=== PATIENT | female | born 1980 | race Caucasian/White ===

== ENCOUNTER 2016-07-17 19:40 | Inpatient (IN) | payer OTHER ==
--- NOTE | ~2016-07-17 | CT24 ---
[facility] A Service of [facility] RADIOLOGY TEXT RESULTS PATIENT: BAKARI NICOLE LOCATION: [place] [address] : [birth year] UNIT #: [id number] AGE: [address]: Winter Williamson MD SEX: F ORDER DR: [id number] [facility] [address] [facility]. [place], [place] [address] [id number] I MR#: [id number] Acc #: [id number] NAME: BAKARI NICOLE : 1980 SEX: F STUDY DATE/TIME: 07/17/2016 18:46 UNIT: [facility] ROOM: [facility] STUDY DESCRIPTION: CT Angio Neck Stroke Attending Physician: Winter Williamson M.D. Ordering Physician: Dany Avila M.D. Primary Care Physician: Debra Dash M.D. MEDICAL IMAGING REPORT This report is preliminary unless electronic signature is present EXAM CT angiogram of the neck HISTORY FINDINGS Please see CT angiogram of the head for results. Dictated by... Kelby Eaton M.D. THIS IS AN ELECTRONICALLY VERIFIED REPORT Kelby Eaton M.D. at 07/18/2016 4:44 PM Hanh TD: 07/18/2016 08:29 JOB #: [id number] MEDICAL IMAGING REPORT Page 1 of 1 COPY
--- NOTE | ~2016-07-17 | CT71 ---
[facility] A Service of [facility] RADIOLOGY TEXT RESULTS PATIENT: BAKARI NICOLE LOCATION: [address] : [birth year] UNIT #: [id number] AGE: [address]: Winter Williamson MD SEX: F ORDER DR: [id number] [facility] [address] [facility]. [place], [place] [address] [id number] I MR#: [id number] Acc #: [id number] NAME: BAKARI NICOLE. : 1980 SEX: F STUDY DATE/TIME: 07/18/2016 21:54 UNIT: [facility] ROOM: [facility] STUDY DESCRIPTION: CT Head Wo Contrast Attending Physician: Winter Williamson M.D. Ordering Physician: Denita Asif M.D. Primary Care Physician: Debra Dash M.D. MEDICAL IMAGING REPORT This report is preliminary unless electronic signature is present EXAM Head CT without. HISTORY CVA, dizziness, falls, double vision, slurred speech, unsteady gait, weakness, post-tPA 07/17/2016. Stroke follow-up. COMMENT Routine noncontrast head CT is reviewed. COMPARISON The comparison is from 07/17/2016. TECHNIQUE NOTE: This CT exam was performed with one or more of the following radiation dose reduction techniques: automatic exposure control, adjustment of mA and/or kV according to patient size, and iterative reconstruction. FINDINGS No displaced calvarial fracture. The mastoid air cells are clear. The visualized paranasal sinuses are clear. There is no evidence for acute intracranial hemorrhage or extraaxial fluid collection. The floor images are limited by artifact. The ventricles are normal in size and configuration. Gregory-white junction is well maintained, allowing for the artifact. There is no intracranial mass effect. IMPRESSION 1. Allowing for artifact on the lower images, no acute intracranial abnormality is suspected. Specifically, no acute intracranial hemorrhage is appreciated. [facility] A Service [facility] RADIOLOGY TEXT RESULTS PATIENT: BAKARI NICOLE LOCATION: [facility] : [birth year] UNIT #: [id number] AGE: [address]: Winter Williamson MD SEX: F ORDER DR: Dictated by... Amy Thomas M.D. THIS IS AN ELECTRONICALLY VERIFIED REPORT Amy Thomas M.D. at 07/19/2016 10:22 AM ESTELLE/jennifer TD: 07/18/2016 23:31 JOB #: [id number] MEDICAL IMAGING REPORT Page 1 of 1 COPY
--- NOTE | ~2016-07-17 | CO ---
Unit #: [id number] #: [id number] Patient: BAKARI HUNTER [id number] [place] [id number] [facility]. [place], [place] [address] [id number] I MR#: [id number] NAME: BAKARI HUNTER ROOM: [facility] Age: 36 Sex: F Admission Date: 07/17/2016 : 1980 Attending Physician: Winter Williamson M.D. Primary Care Physician: Debra Dash M.D. Consultation Date: 07/18/2016 CONSULTATION REPORT REASON FOR CONSULTATION Opiate withdrawal, anxiety, agitation. HISTORY OF PRESENT ILLNESS Ms. Bakari Hunter is a 36-year-old female seen in room 7, CCU2 at [facility] on 07/18/16. The patient reported having withdrawal symptom, use of opiate, meth recently. The patient was admitted on 07/17/16, possible stroke, Dilantin toxicity. The patient has a history of hypertension, seizure, previous [place]. The patient reported history of IV drug abuse, currently reporting having symptoms such as hot and cold sweats, severe anxiety, trouble sleeping, agitation, restlessness of her legs. The patient currently denied any suicidal or homicidal ideation. The patient denied any psychotic symptoms. The patient's urine drug screen was positive for marijuana and opiate. PAST PSYCHIATRIC HISTORY History of substance abuse. No history of any depression, suicide attempt or any inpatient or outpatient treatment. MEDICAL HISTORY History of seizure, eclampsia, myocardial infarction, bilateral tubal ligation, left hand surgery, essential hypertension. FAMILY HISTORY AND SOCIAL HISTORY The patient has a good support system but no history of abuse. History of substance abuse as mentioned above. ALLERGIES No known drug allergy. MEDICATION 1. Lisinopril. 2. Dilantin. 3. Started on methadone 10 mg q.8 hours p.r.n. REVIEW OF SYSTEMS A complete review of systems is unremarkable for as mentioned above. MENTAL STATUS EXAMINATION GENERAL APPEARANCE: Patient dressed casually in hospital attire, lying comfortably, seems somewhat anxious, nervous. VITAL SIGNS: 98.4, 72, 18, 126/88, oxygen saturation 99%. ATTENTION SPAN AND CONCENTRATION: Fair. SPEECH: Rapid. Unit #: [id number] #: [id number] Patient: BAKARI HUNTER ORIENTATION: Time, place and person. MOOD AND AFFECT: Labile. THOUGHT PROCESS: Circumstantial. THOUGHT CONTENT: The patient denied any thoughts of harming self or others. The patient denied any psychotic symptoms. RECENT AND REMOTE MEMORY: Fair. LANGUAGE: Intact. FUND OF KNOWLEDGE: Fair. INSIGHT AND JUDGMENT: Fair to slightly impaired. DIAGNOSES 1. Opiate use disorder, severe, F11.20. 2. Cannabis use, moderate, F12.20. 3. Mood disorder, NOS, F32.9. 4. Anxiety disorder, NOS, F40.01. SECONDARY DIAGNOSIS Deferred. MEDICAL DIAGNOSIS Please refer to H and P. STRESSORS Psychosocial stressors. ASSESSMENT/PLAN 1. Supportive psychotherapy and psychoeducation provided to patient. 2. Educated about benefits and side effects of medication and course and prognosis of illness. 3. I advised patient to continue with the current treatment. I advised Desyrel 100 mg at bedtime for sleep, Requip 1 mg twice daily, Vistaril 50 mg mg three times a day and Neurontin 300 mg q.8 hourly for withdrawal symptoms. The patient was given one dose of Neurontin 600 mg and Requip 1 mg as a now dose. We will continue to follow. If needed, consider further adjustment of medication. Please feel free to call if any questions, telephone number [phone]. Dictated by... Damian Rahman M.D. LILLY/bd TD: 07/19/2016 08:39 JOB #: [id number] CONSULTATION REPORT Page 1 of 1 X Damian Rahman MD X CONSULTATION REPORT
--- NOTE | ~2016-07-17 | MR18 ---
[facility] A Service of [facility] & [facility] RADIOLOGY TEXT RESULTS PATIENT: BAKARI NICOLE LOCATION: [address] : [birth year] UNIT #: [id number] AGE: [address]: Winter Williamson MD SEX: F ORDER DR: [id number] [facility] [address] [facility]. [place], [place] [address] [id number] I MR#: [id number] Acc #: [id number] NAME: BAKARI NICOLE. : 1980 SEX: F STUDY DATE/TIME: 07/18/2016 10:12 UNIT: [facility] ROOM: [facility] STUDY DESCRIPTION: MR Brain Wo Contrast Attending Physician: Winter Williamson M.D. Ordering Physician: Denita Asif M.D. Primary Care Physician: Debra Dash M.D. MRI CENTER REPORT This report is preliminary unless electronic signature is present. EXAM Unenhanced brain MRI, 07/18/2016. PROCEDURE Routine unenhanced brain MRI. COMPARISON Head CT, 07/17/2016. HISTORY Transient episode of leg numbness and double vision for 2 hours on 07/17/2016 with a 4-day history of headache and recent heroin use. FINDINGS There is no restricted diffusion. The brain is structurally normal, and brain parenchymal signal is normal. There is no hemorrhage or mass or hydrocephalus or extraaxial fluid collection. Normal flow voids are seen in the cerebral vessels and the extracranial soft tissues are normal. Bone marrow signal is normal. IMPRESSION Normal brain MRI without contrast. Dictated by... David Alex M.D. THIS IS AN ELECTRONICALLY VERIFIED REPORT David Alxe M.D. at 07/19/2016 3:53 PM CHRISTOS/jessy [facility] A Service of [facility] & [facility] RADIOLOGY TEXT RESULTS PATIENT: BAKARI NICOLE LOCATION: [address] : [birth year] UNIT #: [id number] AGE: [address]: Winter Williamson MD SEX: F ORDER DR: TD: 07/18/2016 12:03 JOB #: [id number] MRI CENTER REPORT Page 1 of 1 COPY
--- NOTE | ~2016-07-17 | EKG ---
PATIENT: BAKARI NICOLE UNIT #: [id number] Ventricular Rate: 66 BPM Atrial Rate: 66 BPM P-R Interval: 152 ms QRS Duration: 84 ms Q-T Interval: 424 ms QTC Calculation(Bezet): 444 ms P [place]: 50 degrees Calculated R [place]: 66 degrees Calculated T [place]: 74 degrees Diagnosis Line: Normal sinus rhythm Diagnosis Line: Low voltage QRS Diagnosis Line: Borderline ECG Diagnosis Line: When compared with ECG of 17-JUL-2016 19:07, Diagnosis Line: No significant change was found Diagnosis Line: Confirmed by ALEXIA HERNANDEZ MD ([id number]) on 07/18/2016 Diagnosis Line: 10:47:30 PM INTERPRETING MD: MARY LERNER
--- NOTE | ~2016-07-17 | EKG ---
PATIENT: BAKARI NICOLE UNIT #: [id number] Ventricular Rate: 78 BPM Atrial Rate: 78 BPM P-R Interval: 148 ms QRS Duration: 86 ms Q-T Interval: 390 ms QTC Calculation(Bezet): 444 ms P Christopher: 50 degrees Calculated R Christopher: 74 degrees Calculated T Christopher: 71 degrees Diagnosis Line: Normal sinus rhythm Diagnosis Line: Normal ECG Diagnosis Line: When compared with ECG of 26-OCT-2013 18:50, Diagnosis Line: No significant change was found Diagnosis Line: Confirmed by HARMAN FOWLER MD ([id number]) on Diagnosis Line: 07/17/2016 10:32:41 PM INTERPRETING : STACY
--- NOTE | ~2016-07-17 | CT72 ---
[facility] A Service of [facility] RADIOLOGY TEXT RESULTS PATIENT: BAKARI NICOLE LOCATION: [facility] : [birth year] UNIT #: [id number] AGE: [address]: Winter Williamson MD SEX: F ORDER DR: [id number] [facility] [address] [facility]. [place], [place] [address] [id number] I MR#: [id number] Acc #: [id number] NAME: BAKARI NICOLE : 1980 SEX: F STUDY DATE/TIME: 07/17/2016 18:39 UNIT: [facility] ROOM: [id number] STUDY DESCRIPTION: CT Head Wo Contrast Stroke Attending Physician: Holly Farmer M.D. Ordering Physician: Dany Avila M.D. Primary Care Physician: Debra Dash M.D. MEDICAL IMAGING REPORT This report is preliminary unless electronic signature is present EXAM CT brain without contrast HISTORY Leg numbness for 2 hours, double vision. Heroin use. TECHNIQUE Axial noncontrast images were obtained from the skull base to the vertex. This CT exam was performed with one or more of the following radiation dose reduction techniques: automatic exposure control, adjustment of mA and/or kV according to patient size, and iterative reconstruction. FINDINGS Ventricular size and configuration are normal. There is no evidence of acute infarct or hemorrhage. There are no extraaxial fluid collections. No mass lesion or mass effect is seen. There are no skull fractures. IMPRESSION Normal noncontrast head CT. Dictated by... Magdy Valderrama M.D. THIS IS AN ELECTRONICALLY VERIFIED REPORT Magdy Valderrama M.D. at 07/18/2016 9:09 PM OMI/baljeet TD: 07/17/2016 22:35 JOB #: [id number] [facility] A Service [facility] RADIOLOGY TEXT RESULTS PATIENT: BAKARI NICOLE LOCATION: [facility] : [birth year] UNIT #: [id number] AGE: [address]: Winter Williamson MD SEX: F ORDER DR: MEDICAL IMAGING REPORT Page 1 of 1 COPY
--- NOTE | ~2016-07-17 | CT18 ---
[facility] A Service of [facility] & [facility] RADIOLOGY TEXT RESULTS PATIENT: BAKARI NICOLE LOCATION: [place] [address] : [birth year] UNIT #: [id number] AGE: [address]: Winter Williamson MD SEX: F ORDER DR: [id number] [facility] [address] [place], [place] [address] [id number] I MR#: [id number] Acc #: [id number] NAME: BAKARI NICOLE. : 1980 SEX: F STUDY DATE/TIME: 07/17/2016 18:46 UNIT: [facility] ROOM: [facility] STUDY DESCRIPTION: CT Angio Head Stroke Attending Physician: Winter Williamson M.D. Ordering Physician: Dany Avila M.D. Primary Care Physician: Debra Dash M.D. MEDICAL IMAGING REPORT This report is preliminary unless electronic signature is present EXAM CT scan of the head and neck with contrast with carotid CT angiography HISTORY Heroine use 3 days ago. Diplopia and leg numbness for the past 2 hours. TECHNIQUE Axial imaging was obtained from the mid mediastinum to the top of the head with contrast. 100 mL of Isovue was used. CT angiography was performed with thick sliding MIPs, curved planar reformats and 3-D volumetric imaging with surface shaded and volume shaded display. This CT exam was performed with one or more of the following radiation dose reduction techniques: automatic exposure control, adjustment of mA and/or kV according to patient size, and iterative reconstruction. FINDINGS Extravascular structures are unremarkable. The CT angiographic study is normal. There is no evidence of dissection, occlusive disease or atherosclerotic change. In the intracranial circulation there is no evidence of distal embolization. No evidence of aneurysm or vascular malformation. The vertebral arteries are codominant. There is origin of the left posterior cerebral artery as a normal variant. IMPRESSION Normal. Dictated by... Kelby Eaton M.D. THIS IS AN ELECTRONICALLY VERIFIED REPORT Kelby Eaton M.D. at 07/18/2016 4:44 PM [facility]S. [facility] A Service of [facility] & [facility] RADIOLOGY TEXT RESULTS PATIENT: BAKARI NICOLE LOCATION: [address] : [birth year] UNIT #: [id number] AGE: [address]: Winter Williamson MD SEX: F ORDER DR: Hanh TD: 07/18/2016 08:33 JOB #: [id number] MEDICAL IMAGING REPORT Page 1 of 1 COPY
--- NOTE | ~2016-07-17 | DS ---
Unit #: [id number] #: [id number] Patient: BAKARI NICOLE [id number] [address] [place], [place] [address] [id number] I MR#: [id number] NAME: BAKARI NICOLE. ROOM: [facility] Age: 36 Sex: F Admission Date: 07/17/2016 : 1980 Discharge Date: 07/19/2016 Attending Physician: Winter Williamson M.D. Primary Care Physician: Debra Dash M.D. DISCHARGE SUMMARY REASON FOR ADMISSION CVA. HISTORY OF PRESENT ILLNESS/HOSPITAL COURSE Patient is a very pleasant 36-year-old female with hypertension, prior seizure disorder, previous myocardial infarction secondary to eclampsia while . Was admitted secondary to possible CVA. Please see H and P for complete details. Through ER course the patient received TPA. Patient was kept in the ICU for 24 hours. She had no acute neurological events. MRI brain without contrast was performed, which did not show any acute process. Consultation was placed to neurology service. Patient underwent stroke protocol, including CT angiogram head and neck, as well as CT head without contrast. Patient also underwent ALANA, which did not show any acute clot and/or vegetation. Patient does have a longstanding history of IV drug abuse. At this point in time the patient has all neurological deficits now resolved, has been cleared by PT/OT. Consultation was placed to Dr. Rahman of psychiatry service who recommended trazodone, Neurontin, Requip, as well as Vistaril, at time of discharge to help patient with IV drug abuse and trying to discontinue. It has been reinforced with patient on numerous occasions that she does need to quit IV drugs, as her overall long-term prognosis would be very poor. She expressed understanding and agreement. FINAL DISCHARGE DIAGNOSES 1. Cerebrovascular accident status post tissue plasminogen activator with resolution of symptoms. 2. Right hemispheric/posterior circulation cerebrovascular accident. 3. Status post mechanical fall at home. 4. Seizure disorder, on Dilantin. 5. Hypertension. 6. Prior history of myocardial infarction. 7. Tobacco abuse. 8. Positive intravenous drug abuse. 9. Generalized anxiety. 10. Hypertension. Unit #: [id number] #: [id number] Patient: BAKARI NICOLE FINAL DISCHARGE MEDICATIONS 1. Neurontin 300 mg p.o. q.8. 2. Trazodone 100 mg p.o. q.h.s. 3. Requip 1 mg p.o. b.i.d. 4. Vistaril 50 mg p.o. q.8 p.r.n. 5. Lipitor 40 mg p.o. q.h.s. 6. Dilantin 300 mg p.o. daily. 7. Lisinopril 10 mg p.o. daily. 8. Aspirin 81 mg p.o. daily. DISCHARGE CONDITION Stable. DISCHARGE DISPOSITION Home. FOLLOWUP 1. Follow up PCP 7 to 10 days[address] 2[address] Follow up Dr. Oliva 2 to 3 weeks. Dictated by... Pedrito Echavarria/evie TD: 07/20/2016 08:27 JOB #: [id number] DISCHARGE SUMMARY Page 1 of 1 X Winter Williamson MD X DISCHARGE SUMMARY
--- NOTE | ~2016-07-17 | HP ---
Unit #: [id number] #: [id number] Patient: BAKARI NICOLE [id number] [address] [place], [place] [address] [id number] I MR#: [id number] NAME: BAKARI NICOLE. ROOM: 97689 Age: 36 Sex: F Admission Date: 07/17/2016 : 1980 Attending Physician: Holly Farmer M.D. Primary Care Physician: Debra Dash M.D. HISTORY AND PHYSICAL REVISED REPORT CHIEF COMPLAINT Possible stroke, Dilantin toxicity. HISTORY OF PRESENT ILLNESS This 36-year-old female with hypertension, seizures, previous DE due to eclampsia while , is admitted for possible CVA. The patient states that she was well until just before coming into the ER when she developed diplopia, staggered gait, unable to walk, and apparently left arm weakness. She presented to this emergency department at 5:52 was seen immediately by the ER physician. Head CT is negative. CTA of the head and neck show that the posterior communicating artery is not well seen but no cutoff or aneurysm. The case was discussed with Dr. Yefri martínez saw the patient via robot. The patient then received IV tPA and she currently is improved. She still has some mild left-sided weakness with a left pronator drift. Her speech has improved. She had a posterior headache for the past several days. Labs performed show that she is Dilantin toxic as well. She denies similar symptoms in the past, and states except for her posterior headache over the past four days, she has been feeling well until tonight. PAST MEDICAL HISTORY 1. Essential hypertension. 2. Generalized seizures. 3. Eclampsia and myocardial infarction during . 4. Bilateral breast augmentation. 5. BTL. 6. Left hand surgery. ALLERGIES No known drug allergies. HOME MEDICATIONS 1. Lisinopril. 2. Dilantin. Doses are unknown. SOCIAL HISTORY The patient lives alone. She smokes 1-1/2 packs per day of tobacco. Does not drink alcohol. Urine toxicology screen is positive as will be dictated below. Unit #: [id number] #: [id number] Patient: BAKARI NICOLE FAMILY HISTORY CAD, CVA. REVIEW OF SYSTEMS Notable for diplopia, weakness, staggering, fall, DE, hypertension, seizures, above-mentioned surgeries. All other systems were reviewed and are negative. PHYSICAL EXAMINATION VITAL SIGNS: Temperature 99, pulse 115, respirations 16, blood pressure 133/91, O2 saturation 99% on room air. GENERAL: 36-year-old female currently in no acute distress. HEENT: Eyes PERRLA. Mild horizontal nystagmus noted. Pharynx has broken on of her top teeth but no excessive bleeding. Palate elevates midline. NECK: Supple without adenopathy or thyromegaly or carotid bruits. CHEST: Clear. HEART: Normal S1, S2 without S3, S4 or murmur. ABDOMEN: Bowel sounds are present. No hepatosplenomegaly, tenderness or masses. EXTREMITIES: Without edema. Pedal pulses are present. NEUROLOGIC: Awake, alert, oriented except that she thinks it is 2016. Cranial nerves demonstrate mild horizontal nystagmus bilaterally. She has decreased peripheral vision on the left. Maybe a tiny left lower facial droop. Positive left pronator drift. She has weakness in the left leg as compared to the right. Heel to leal is a little off on the left and slight past pointing on the left. DIAGNOSTIC STUDIES LABORATORY: Hematocrit 37, normal white count, platelet count and coags. SMA-12 potassium 3.4, albumin 3.4. Dilantin level is 28.3. Urine toxicology screen positive for opiates and THC. Urinalysis 2+ leukocyte esterase wit 2-5 rbc's and 10-25 wbc's, 3+ bacteria but many squamous cells seen. IMAGING: Head CT no acute disease. CTA of the head and neck. The posterior communicating artery not well seen but otherwise normal. CARDIOVASCULAR: EKG normal sinus rhythm, rate 78, normal appearing. ASSESSMENT 1. Possible right hemispheric or posterior circulation cerebrovascular accident. Patient is Dilantin toxic but seems to lateralize more toward the left. 2. Seizure disorder on Dilantin with Dilantin toxicity. 3. Essential hypertension. 4. History of myocardial infarction in her 20s while due to eclampsia. 5. Tobacco abuse. 6. Positive opiates and THC on urine drug screen. 7. Possible urinary tract infection versus contamination. PLAN 1. Post TPA orders have been signed by Neurology. 2. SCDs for DVT prophylaxis. 3. NicoDerm patch. Unit #: [id number] #: [id number] Patient: BAKARI NICOLE 4. Recheck Dilantin level in the morning and hold until the level decreases. 5. Verify home medicines. 6. MRI, ALANA and head CT per Neurology. 7. Check lipid profile. 8. Antibiotics pending urine cultures. Critical care time spent evaluating this patient was 40 minutes. ADDENDUM The patient is demanding to smoke one cigarette before going to the ICU or she will leave AMA. She became quite agitated in the ER. I discussed the risks with the patient about going outside and smoking that she could . However, she is refusing to stay saying that she wants to leave AMA otherwise. She is alert and oriented x3 and therefore cannot be placed on a hold. I also discussed the case with Dr. Asif. I believe that the risks of the patient going outside in a gurney with a monitor to smoke once outweighs the risk of leaving AMA and possibly falling. Dictated by Pedrito Castellon/surekha TD: 07/17/2016 22:22 JOB #: [id number] HISTORY AND PHYSICAL Page 1 of 1 X Holly Farmer MD HISTORY AND PHYSICAL
--- NOTE | ~2016-07-17 | CO ---
Unit #: [id number] #: [id number] Patient: BAKARI NICOLE [id number] [facility] [address]. [place], [place] [address] [id number] MR#: [id number] NAME: BAKARI NICOLE. ROOM: [facility] Age: 36 Sex: F Admission Date: 07/17/2016 : 1980 Attending Physician: Winter Williamson M.D. Primary Care Physician: Debra Dash M.D. Consultation Date: 07/18/2016 CONSULTATION REPORT REFERRING PHYSICIANS 1. Dr. Holly Farmer. 2. Dr. Dany Avila, ER physician. PATIENT IDENTIFICATION This is a 36-year-old right-handed white female who was evaluated in ICU 7 at [facility]. She was also seen via [employer] as acute code stroke. PROBLEM LIST 1. Prior history of seizures. 2. Possible eclampsia. 3. History of myocardial infarction during . 4. Bilateral tubal ligation. 5. Left hand surgery. 6. Essential hypertension. 7. It looks like she has polysubstance abuse. She acknowledged IV drugs. 8. Possible withdrawal. 9. Dilantin toxicity. HISTORY OF PRESENT ILLNESS This is a 36-year-old female who actually presented yesterday and this was an abrupt onset, about an hour before she presented with ataxia and left-sided weakness and dysarthria. She was immediately seen by the ER physician and I got involved. I got on the robot and saw the patient. The patient had focal neurologic deficit which was dysarthria, left-sided weakness, and left-sided ataxia. Her risk factors were evaluated and there were no acute risk factors, so it was decided to go for TPA and I explained it to the patient. CTA was done which was unremarkable. CT was unremarkable, so after reviewing of the (1) criteria by myself and the ER physician, she was given TPA and she was admitted for post TPA orders and workup. The patient did have some improvement but the biggest concern has been that since last night, three times she has threatened to leave AMA. First, she wanted to smoke and then she wanted help with withdrawal and also she wanted some sleep aide. This is after she got methadone to help her with pain and relaxation. She has been getting medication for nausea. This morning, she again wanted to leave. I requested her and I really appreciate Dr. Farmer talking to her and making it comfortable for her so she does not leave. Unit #: [id number] #: [id number] Patient: BAKARI NICOLE She did acknowledge use of IV heroin two days earlier. Her history is very sketchy but very worrisome. Apparently, she had a [place] at 22 and the cause is not really identified. There is question about eclampsia. She has seizures and so far I do not know who is seeing her. After all this, it does not look like she is on aspirin and I am not sure if she is compliant but her Dilantin level is 28.3 and she takes Dilantin 300 mg at bedtime. Her alcohol level was not checked. Her CBC was unremarkable. Urine drug screen was positive for marijuana and opiates and she said that she had not used opiates for 48 hours. This morning when I see her, she is much better. She is more awake and alert, very minimal left-sided weakness but dysarthria and left facial weakness and ataxia has improved significantly. She is going for MRI. I have a very, very detailed discussion with the patient regarding diagnosis of stroke in acute situations and how we use NIH stroke scale and also the stroke protocol in acute situations and why TPA was given and what are the precautions and issues with it. It may have helped her a lot but there may be some residual, but the biggest risk is in the first 24 hours to make sure there is no hemorrhage and that is why she needs to be closely monitored. It does not look like this was a seizure. She has generalized seizures. She has been here once before for perianal abscess but never been cardiac or otherwise worked up. When I asked her who her deputy insurance commissioner is, she says I do not have one. She goes to the primary care physician and unfortunately we do not have any records. Her primary care physician is Debra Dash M.D. No falls. No other injuries. As I mentioned before, she was given TPA as per protocol and she did not have any cutoff to go for any intervention. Post TPA protocol is in place. PAST MEDICAL HISTORY As discussed above. PAST SURGICAL HISTORY As discussed above. She also had left hand surgery and bilateral breast augmentation. ALLERGIES None. HOME MEDICATIONS 1. Lisinopril. 2. Dilantin, she says 300 mg. SOCIAL HISTORY Apparently, the patient is single and lives alone. She told me she has children. She smokes about one and a half pack per day. She denies drinking. She did acknowledge use of IV heroin. Urine drug screen is positive for opiates and THC. FAMILY HISTORY Several people in the family have stroke and young coronary artery disease. Her aunt had bypass at 31. REVIEW OF SYSTEMS Mostly as discussed in history of present illness. Unit #: [id number] #: [id number] Patient: BAKARI NICOLE CONSTITUTIONAL: She denies any weight issues, fever, chills, rigors, sweats. HEENT: No headaches. No double vision, earache, runny nose, sore throat. CARDIOVASCULAR: No chest pain, clubbing, cyanosis, orthopnea, or palpitations. PULMONARY: No shortness of air, cough, or expectoration. GASTROINTESTINAL: No nausea, vomiting, diarrhea, or constipation. GENITOURINARY: No genitourinary symptoms. EXTREMITIES: Left-sided ataxia. BACK: No back problem. PSYCHIATRIC: Polysubstance abuse. NEUROLOGIC: History of seizure. HEMATOLOGIC/DERMATOLOGIC/ENDOCRINE: No other hematologic, dermatologic, or endocrine problem known to me. ORAL: She does have very poor oral teeth health and some caries, and she says she fell and hit her right frontal tooth. PHYSICAL EXAMINATION VITAL SIGNS: Temperature is 98.1, pulse is 70, respirations 17, blood pressure 127/93, and O2 saturations were 93% to 100%. Weight 104 pounds. BMI was 20. NEUROLOGIC: The patient is awake. She is alert. Except for saying that it is the 28th, she is fully oriented. She can name. She can follow commands. No right/left confusion. No finger agnosia. CRANIAL NERVES: Demonstrates full siddiqi of vision to confrontation. Eye movements are conjugate. I did not see any ptosis. I did not see any nystagmus. Extraocular movements are intact. Sensation on the face and scalp are normal. Strength of muscles of facial expression are normal. Hearing seemed to be intact bilaterally. Tongue was midline. Uvula was midline. Palate elevation normal. Head turning and shoulder shrug was unremarkable. MOTOR: On motor examination, she has normal bulk and tone. She has very mild drift on the left side and strength in the left lower extremity is 5-/5, otherwise 5/5. SENSORY: Intact for soft touch and pain sensation. No extinction was seen. Romberg was not elevated. GAIT: Deferred. She is post TPA. REFLEXES: I could not get any reflexes. Toes are moot. COORDINATION: Very minimal slowing on the left side. Very mild ataxia. DIAGNOSTIC STUDIES Labs and imaging studies reviewed. IMPRESSION 1. This is a very critical situation of a 36 year old who presented with stroke-like symptoms and she was given TPA and the patient has been threatening to leave and she has at least three times attempted to leave and sign out against medical advice. She has been given a different medication to help her. I just sent her for a MRI. She is post TPA protocol. She did meet the criteria for acute onset and no other causes identified, so we are going to go for ALANA and based on the MRI study to decide where to go. 2. Stroke education and modification of stroke risk factor. 3. Dilantin toxicity: I am going to hold the Dilantin for right now, check the level again tomorrow. Put her on aspirin afterwards and further treatment will be based on our findings. Her LDL was 89. I practically begged her to give us the opportunity to follow through on our workup and also that she needs to know why she had a stroke or Unit #: [id number] #: [id number] Patient: BAKARI NICOLE transient ischemic attack or resolved stroke with the treatment and why does she have seizures. 4. My biggest concern is that somebody finds out that this lady acted this present way then other physicians may refuse to do interventions and treatments that need very stringent followup and observation because they would be afraid that the patient may leave after they initiate a particular treatment protocol, for example TPA or anticoagulation for that matter. I will follow her. Please refer to the notes and evaluation done by the physicians. If stroke is identified, will follow per protocol. If stroke is not identified on MRI, then we will consider resolution with TPA Or transient ischemic attack and again, definitely she will need full workup. This is not a classic presentation for her seizure and Dilantin toxicity can cause ataxia but with the focal findings, it was very concerning. I will follow her. Can call me for any other questions, issues, or concerns and if she has to leave, she has to leave against medical advice. I also begged her to at least stay until 10 o'clock tonight and also I want to do a ALANA and will go from there. I may end up doing stroke workup (2) at the appropriate time. Dictated by... Pedrito Holley TD: 07/18/2016 10:23 JOB #: [id number] CONSULTATION REPORT Page 1 of 1 X Denita Asif MD X CONSULTATION REPORT
[2016-07-17 19:00] LABS: URINE SOURCE CLEAN CATCH
[2016-07-17 19:08] LABS: BASOPHIL% 0.8 % (0-2.5); EOSINOPHIL# 0.1 X10e3 (0-0.7); EOSINOPHIL% 2.4 % (0.0-7.0); HEMOGLOBIN 12.5 gm/dL (12.0-16.0); LYMPHOCYTE# 2.1 X10e3 (1.0-3.5); LYMPHOCYTE% 35.2 % (17.0-45.0); MEAN CELL VOLUME 86.2 FL (83-96); MEAN CORPUSCULAR HEMOGLOBIN 29.1 PG (28-34); MEAN CORPUSCULAR HGB CONC 33.7 g/dL (30-36); MEAN PLATELET VOLUME 8.4 FL (6.5-11.5); MONOCYTE# 0.6 X10e3 (0-1.0); MONOCYTE% 9.5 % (3.0-12.0); NEUTROPHIL# 3.2 X10e3 (1.5-7.1); NEUTROPHIL% 52.1 % (40-75); PLATELET COUNT 306 X10e3 (140-420); RED BLOOD COUNT 4.29 X10e (3.90-5.30); RED CELL DISTRIBUTION WIDTH 14.7 % (11.0-15.5); WHITE BLOOD COUNT 6.1 X10e3 (4.0-10.5)
[2016-07-17 19:09] LABS: DIFF IND NO
[2016-07-17 19:10] LABS: POC - CREATININE 0.74 mg/dL (0.44-1.03); POC - GFR >60.0 mL/min (>60)
[2016-07-17 19:12] LABS: URINE APPEARANCE CLOUDY; URINE BILIRUBIN NEG (NEG); URINE BLOOD NEG (NEG); URINE COLOR YELLOW; URINE GLUCOSE NEG (NEG); URINE KETONE NEG (NEG); URINE LEUKOCYTE ESTERASE 2+ (NEG); URINE NITRATE NEG (NEG); URINE PROTEIN NEG (NEG); URINE SPECIFIC GRAVITY 1.011 (1.003-1.035); URINE UROBILINOGEN 0.2 MG/DL (NEG)
[2016-07-17 19:14] LABS: CULTURE INDICATED? YES; URINE BACTERIA AUWI 3+ (NEGATIVE); URINE SQUAMOUS EPITHELIAL CELL MOD /[HPF]
[2016-07-17 19:27] LABS: AMPHETAMINE NEG (NEG); BARBITURATES NEG (NEG); BENZODIAZEPINES NEG (NEG); COCAINE NEG (NEG); MARIJUANA POS (NEG); OPIATES POS (NEG); TRICYCLIC ANTIDEPRESSANTS NEG (NEG); U METHADONE NEG (NEG)
[2016-07-17 19:28] LABS: ALBUMIN SERUM 3.4 g/dL (3.5-5.0); BILIRUBIN, DIRECT 0.1 mg/dL (0.0-0.2); BILIRUBIN,INDIRECT 0.2 mg/dL (0.0-0.9); BILIRUBIN,TOTAL 0.3 mg/dL (0.2-2.0); BUN/CREATININE RATIO 16.66; CALCIUM SERUM 8.7 mg/dL (8.4-10.2); CREATININE SERUM 0.6 mg/dL (0.6-1.4); GLOM FILT RATE Estimated 118.1 mL/min (>60); POTASSIUM 3.4 mmol/L (3.5-5.1); PROTEIN TOTAL SERUM 7.2 g/dL (6.0-8.3)
[~2016-07-17 19:40] MED LIST: BACTRIM DS TABL1 TA1 PO; CIPRO PO; DILANTIN PO; FLEXERIL PO; FLEXERIL10 MG PO; IBUPROFEN PO; KEFLEX500 M1 PO; KEPPRA500 M1 PO; KEPPRA500 MG PO; LEVAQUIN PO; LISINOPRIL PO; LISINOPRIL5 MG PO; LORTAB 5/500 TA1 TA1 PO; LORTAB 7.5-5001 TAB PO; LORTAB PO; MEDROL PO; NAPROSYN500 MG PO; NO MEDICATIONS; PERCOCET PO; PHENERGAN PO; PHENERGAN25 MG PO; PRINIVIL40 MG PO; VICODIN 5/1 TAB 5/50 PO; VICODIN 5/500 T1 TAB; VICODIN 5/500 T1 TAB PO; VISTARIL PO; ZOFRAN PO
[2016-07-17 20:27] LABS: PARTIAL THROMBOPLASTIN TIME 28.7 SECONDS (23.5-31.3); PROTHROMBIN TIME (PATIENT) 10.9 SECONDS (9.6-11.5)
[2016-07-18 04:41] LABS: BASOPHIL% 0.6 % (0-2.5); EOSINOPHIL# 0.1 X10e3 (0-0.7); EOSINOPHIL% 1.7 % (0.0-7.0); HEMATOCRIT 32.9 % (35.0-45.0); HEMOGLOBIN 10.9 gm/dL (12.0-16.0); LYMPHOCYTE# 2.5 X10e3 (1.0-3.5); LYMPHOCYTE% 43.2 % (17.0-45.0); MEAN CELL VOLUME 86.8 FL (83-96); MEAN CORPUSCULAR HEMOGLOBIN 28.7 PG (28-34); MEAN CORPUSCULAR HGB CONC 33.1 g/dL (30-36); MEAN PLATELET VOLUME 8.6 FL (6.5-11.5); MONOCYTE# 0.8 X10e3 (0-1.0); MONOCYTE% 13.9 % (3.0-12.0); NEUTROPHIL# 2.3 X10e3 (1.5-7.1); NEUTROPHIL% 40.6 % (40-75); PLATELET COUNT 277 X10e3 (140-420); RED BLOOD COUNT 3.79 X10e (3.90-5.30); RED CELL DISTRIBUTION WIDTH 14.6 % (11.0-15.5); WHITE BLOOD COUNT 5.8 X10e3 (4.0-10.5)
[2016-07-18 04:42] LABS: DIFF IND NO
[2016-07-18 04:59] LABS: ALBUMIN SERUM 2.9 g/dL (3.5-5.0); BILIRUBIN,TOTAL 0.3 mg/dL (0.2-2.0); BUN/CREATININE RATIO 16.66; CALCIUM SERUM 8.4 mg/dL (8.4-10.2); CREATININE SERUM 0.6 mg/dL (0.6-1.4); GLOM FILT RATE Estimated 118.1 mL/min (>60); POTASSIUM 3.7 mmol/L (3.5-5.1)
[2016-07-18 05:00] LABS: DILANTIN (PHENYTOIN) 24.4 ug/mL (10.0-20.0)
[2016-07-19 06:06] LABS: BASOPHIL# 0.1 X10e3 (0-0.3); BASOPHIL% 0.9 % (0-2.5); EOSINOPHIL# 0.2 X10e3 (0-0.7); EOSINOPHIL% 2.3 % (0.0-7.0); HEMATOCRIT 33.9 % (35.0-45.0); HEMOGLOBIN 11.4 gm/dL (12.0-16.0); LYMPHOCYTE# 3.2 X10e3 (1.0-3.5); MEAN CELL VOLUME 87.1 FL (83-96); MEAN CORPUSCULAR HEMOGLOBIN 29.3 PG (28-34); MEAN CORPUSCULAR HGB CONC 33.7 g/dL (30-36); MEAN PLATELET VOLUME 9.2 FL (6.5-11.5); MONOCYTE% 12.5 % (3.0-12.0); NEUTROPHIL# 3.4 X10e3 (1.5-7.1); NEUTROPHIL% 43.3 % (40-75); PLATELET COUNT 286 X10e3 (140-420); RED CELL DISTRIBUTION WIDTH 14.4 % (11.0-15.5); WHITE BLOOD COUNT 7.8 X10e3 (4.0-10.5)
[2016-07-19 06:14] LABS: DIFF IND NO
[2016-07-19 06:48] LABS: INR 1.1; PARTIAL THROMBOPLASTIN TIME 27.1 SECONDS (23.5-31.3); PROTHROMBIN TIME (PATIENT) 11.1 SECONDS (9.6-11.5)
[2016-07-19 07:17] LABS: ALBUMIN SERUM 2.7 g/dL (3.5-5.0); BILIRUBIN,TOTAL 0.3 mg/dL (0.2-2.0); BUN/CREATININE RATIO 14.28; CALCIUM SERUM 7.8 mg/dL (8.4-10.2); CREATININE SERUM 0.7 mg/dL (0.6-1.4); GLOM FILT RATE Estimated 112.3 mL/min (>60); POTASSIUM 3.6 mmol/L (3.5-5.1); PROTEIN TOTAL SERUM 5.6 g/dL (6.0-8.3)
[2016-07-19] MEDS ORDERED: ACETAMINOPHEN325 MG PO (11:11)
[2016-07-19] MEDS ORDERED: GABAPENTIN300 M2 PO (11:11)
[2016-07-19] MEDS ORDERED: REQUIP1 MG PO (11:12)
[2016-07-19] MEDS ORDERED: DESYREL100 MG PO (11:12)
[2016-07-19] MEDS ORDERED: VISTARIL50 MG PO (11:13)
[2016-07-19] MEDS ORDERED: LIPITOR40 MG PO (11:14)
[2016-07-19] MEDS ORDERED: PHENYTOIN SODI300 MG PO (11:14)
[2016-07-19] MEDS ORDERED: ZESTRIL10 M1 PO (11:16)
[2016-07-19] MEDS ORDERED: DILANTIN PO (11:16)
[2016-07-19] MEDS ORDERED: ASPIRIN81 MG PO (11:17)
[2016-07-20 22:15] LABS: PROTEIN C ACTIVITY 70 % (70-180); PROTEIN S 72 % (60-140)
[2016-07-21 14:27] LABS: CARDIOLIPIN IGG (LUPUS) <14 GPL (<=14); CARDIOLIPIN IGM (LUPUS) 16 MPL (<=12); DRVVT MIX INTERP (LUPUS) Not Indicated (()); INR LUPUS 1.1 (()); PROTROMBIN TIME LUPUS 11.7 sec (9.0-11.5); PT (LA MIX STUDY) 11.7 sec (<=11.5); PTT-LA 35 sec (<=40); PTT-LA SCREEN (LUPUS) 35 sec (<=40); THROMBIN TIME LUPUS 18 sec (13-19); dRVVT SCREEN (LUPUS) 29 sec (<=45)
== END 2016-07-19 12:20 | disposition home or self-care (01) | DRG 62 ==
LOC: CED 19:40 → CEDOF 22:10 → CICCU2 22:55
PROVIDERS: Emergency Medicine; Family Medicine; Internal Medicine; Psychiatry & Neurology Neurology
DX: I63.8 Other cerebral infarction (principal); G81.94 Hemiplegia, unspecified affecting left nondominant side; R56.9 Unspecified convulsions; F11.20 Opioid dependence, uncomplicated; N39.0 Urinary tract infection, site not specified; I10 Essential (primary) hypertension; I25.2 Old myocardial infarction; F17.210 Nicotine dependence, cigarettes, uncomplicated; F41.9 Anxiety disorder, unspecified; F12.20 Cannabis dependence, uncomplicated; F39 Unspecified mood [affective] disorder; Z98.51 Tubal ligation status
CPT/HCPCS: 36415; 70450; 70496; 70498; 70551; 80048; 80053; 80061; 80076; 80185; 80307; 81003; 81240; 82550; 82565; 82947; 83036; 84443; 84484; 85025; 85220; 85301; 85303; 85306; 85610; 85613; 85652; 85670; 85730; 86140; 86146; 86147; 86148; 87040; 87086; 92523-GN; 92610; 93005; 93226; 93312; 97116; 97162; 97165; 99291; C9113; G8987-GO; G8988-GO; G8989-GO; J0696; J2060; J2250; J2405; J2765; J2997; J3010; Q9967